=== PATIENT | female | born 1985 | race Two or more races ===

== ENCOUNTER 2018-06-26 03:53 | Emergency (ER) | payer OTHER ==
[~2018-06-26] VITALS: Ht 154.9 cm; Wt 61.2 kg
[~2018-06-26 03:53] MED LIST: ALBUTEROL; AMOX1TAB12 PO; CEFADROXIL500 MG PO; DOLOGESIC CAPLE1 TAB PO; KETO10TA2 PO; MUCINEX; MUCINEX1200 MG/BO PO; NASONEX17 GM NS; ORPH100T PO; PHENAGIL CH TA1 EACH PO
== END 2018-06-26 09:14 ==
LOC: ER 03:53
DX: O46.8X2 Other antepartum hemorrhage, second trimester (principal); Z68.32 Body mass index [BMI] 32.0-32.9, adult

== ENCOUNTER 2018-11-20 11:41 | Outpatient (CLI) | payer OTHER ==
[2018-11-20] MEDS ORDERED: ACETAMINOPHEN500 M2 PO (12:24)
[2018-11-20] MEDS ORDERED: OBSTETRIX DHA1 EACH (12:25)
[2018-11-20] MEDS ORDERED: BENADRYL25 MG PO (12:25)
== END 2018-11-21 11:36 | disposition home or self-care (01) ==
LOC: OBS/DEL 11:41
DX: O26.892 Other specified pregnancy related conditions, second trimester (principal); B34.9 Viral infection, unspecified; J06.9 Acute upper respiratory infection, unspecified; O23.42 Unspecified infection of urinary tract in pregnancy, second trimester; Z34.82 Encounter for supervision of other normal pregnancy, second trimester

== ENCOUNTER 2019-01-29 16:02 | Inpatient (IN) | payer OTHER ==
[~2019-01-29] VITALS: Ht 152.4 cm; Wt 74.4 kg
[~2019-01-29 16:02] MED LIST changes: +ACETAMINOPHEN500 M2 PO; +BENADRYL25 MG PO; +OBSTETRIX DHA1 EACH
[2019-02-03] MEDS ORDERED: GAS RELIEF125 MG PO (08:59)
[2019-02-03] MEDS ORDERED: PRENATAL + DHA1 EAC1 PO (09:00)
== END 2019-02-03 14:07 | DRG 787 ==
LOC: LDR 16:02 → O/R 01-31 18:25 → OB/GYN 01-31 19:51
PROVIDERS: ADMIT Obstetrics & Gynecology
PROC: 4A1HXCZ Monitoring of Products of Conception, Cardiac Rate, External Approach (ICD-10-PCS; 2019-01-29)
PROC: 10D00Z1 Extraction of Products of Conception, Low, Open Approach (ICD-10-PCS; principal; 2019-01-31 17:00)
DX: O36.5930 Maternal care for other known or suspected poor fetal growth, third trimester, not applicable or unspecified (principal); O23.33 Infections of other parts of urinary tract in pregnancy, third trimester; O76 Abnormality in fetal heart rate and rhythm complicating labor and delivery; Z3A.37 37 weeks gestation of pregnancy; Z37.0 Single live birth; Z22.330 Carrier of Group B streptococcus

== ENCOUNTER 2019-02-18 06:40 | Emergency (ER) | payer OTHER ==
[~2019-02-18] VITALS: Ht 154.9 cm; Wt 68.5 kg
[~2019-02-18 06:40] MED LIST changes: +GAS RELIEF125 MG PO; +PRENATAL + DHA1 EAC1 PO
== END 2019-02-18 11:18 | disposition home or self-care (01) ==
LOC: ER 06:40
DX: K29.70 Gastritis, unspecified, without bleeding (principal); R10.13 Epigastric pain

== ENCOUNTER 2019-02-24 14:45 | Inpatient (IN) | payer OTHER ==
[~2019-02-24] VITALS: Ht 154.9 cm; Wt 58.1 kg
[2019-02-26] MEDS ORDERED: FLORAVANCE CAP1 EACH PO (08:29)
== END 2019-03-09 10:04 | disposition home or self-care (01) | DRG 394 ==
LOC: ER 14:45 → OB/GYN 02-25 12:43 → SURH 02-25 12:43
PROVIDERS: ADMIT Obstetrics & Gynecology
PROC: BW4GZZZ Ultrasonography of Pelvic Region (ICD-10-PCS; 2019-02-25)
PROC: BW21Y0Z Computerized Tomography (CT Scan) of Abdomen and Pelvis using Other Contrast, Unenhanced and Enhanced (ICD-10-PCS; 2019-02-26)
PROC: 02HV33Z Insertion of Infusion Device into Superior Vena Cava, Percutaneous Approach (ICD-10-PCS; 2019-02-26)
PROC: 0W9F30Z Drainage of Abdominal Wall with Drainage Device, Percutaneous Approach (ICD-10-PCS; principal; 2019-02-28)
PROC: BW21Y0Z Computerized Tomography (CT Scan) of Abdomen and Pelvis using Other Contrast, Unenhanced and Enhanced (ICD-10-PCS; 2019-03-05)
PROC: 8E0ZXY6 Isolation (ICD-10-PCS; 2019-03-08)
DX: I88.0 Nonspecific mesenteric lymphadenitis (principal); K35.20 Acute appendicitis with generalized peritonitis, without abscess; A04.72 Enterocolitis due to Clostridium difficile, not specified as recurrent; N39.0 Urinary tract infection, site not specified

== ENCOUNTER 2021-04-05 21:18 | Inpatient (IN) | payer OTHER ==
[~2021-04-05] VITALS: Ht 154.9 cm; Wt 63.5 kg
[~2021-04-05 21:18] MED LIST changes: +FLORAVANCE CAP1 EACH PO
[2021-04-10] MEDS ORDERED: FLAGYL500MG PO (13:39)
[2021-04-10] MEDS ORDERED: CIPRO500 MG PO (13:39)
[2021-04-10] MEDS ORDERED: PEPCID AC20 MG PO (13:39)
[2021-04-10] MEDS ORDERED: INTESTINEX680 M1 PO (13:39)
== END 2021-04-10 16:06 | disposition home or self-care (01) | DRG 392 ==
LOC: ER 21:18 → SEC-K 04-06 13:16 → MEDI 04-06 15:58
PROVIDERS: ADMIT Internal Medicine; ATTEND Internal Medicine
PROC: 8E0ZXY6 Isolation (ICD-10-PCS; principal; 2021-04-06)
DX: K52.89 Other specified noninfective gastroenteritis and colitis (principal); T61.8X1A Toxic effect of other seafood, accidental (unintentional), initial encounter; Y92.89 Other specified places as the place of occurrence of the external cause; Z20.822 Contact with and (suspected) exposure to COVID-19

== ENCOUNTER 2021-11-13 15:56 | Emergency (ER) | payer OTHER ==
[~2021-11-13] VITALS: Ht 157.5 cm; Wt 60.3 kg
[~2021-11-13 15:56] MED LIST changes: +CIPRO500 MG PO; +FLAGYL500MG PO; +INTESTINEX680 M1 PO; +PEPCID AC20 MG PO
== END 2021-11-13 18:10 | disposition home or self-care (01) ==
LOC: ER 15:56
DX: U07.1 COVID-19 (principal); Z88.8 Allergy status to other drugs, medicaments and biological substances

== ENCOUNTER 2022-10-14 13:02 | Emergency (ER) | payer OTHER ==
[~2022-10-14] VITALS: Ht 154.9 cm; Wt 58.1 kg
[2022-10-14] MEDS ORDERED: BACTRIM DS TAB1 EACH PO (20:18)
== END 2022-10-14 20:35 | disposition home or self-care (01) ==
LOC: ER 13:02
DX: N39.0 Urinary tract infection, site not specified (principal); Z88.8 Allergy status to other drugs, medicaments and biological substances

== ENCOUNTER 2025-01-08 17:11 | Emergency (ER) | payer OTHER ==
[~2025-01-08] VITALS: Ht 154.9 cm; Wt 59.9 kg
[~2025-01-08 17:11] MED LIST changes: +BACTRIM DS TAB1 EACH PO
[2025-01-08] MEDS ORDERED: KETOROLAC TROMETHAMINE 30 MG VIAL ONE (21:36)
[2025-01-08] MEDS ORDERED: DEXAMETHASONE SODIUM PHOSPHATE 4 MG/ML VIAL ONE (21:36)
[2025-01-08] MEDS ORDERED: KETOROLAC TROMETHAMINE 30 MG VIAL IM STA (21:41)
[2025-01-08] MEDS ORDERED: DEXAMETHASONE SODIUM PHOSPHATE 4 MG/ML VIAL IM STA (21:41)
[2025-01-08] MEDS ORDERED: NEURONTIN300 MG PO (21:46)
[2025-01-08] MEDS ORDERED: IBU800 MG PO (21:46)
== END 2025-01-08 21:53 | disposition home or self-care (01) ==
LOC: ER 17:11
DX: R20.2 Paresthesia of skin (principal); Z88.8 Allergy status to other drugs, medicaments and biological substances